=== PATIENT | female | born 1990 | race Two or more races ===

== ENCOUNTER 2018-03-01 09:16 | Inpatient (IN) | payer OTHER ==
[2018-03-01] MEDS ORDERED: OXYTOCIN 30 UNITS/LR 500 ML IV ×2 (14:30)
[2018-03-01] MEDS ORDERED: CARBOPROST 250 MCG INJ IM (14:30)
[2018-03-01] MEDS ORDERED: LIDOCAINE 1% (MPF) 30 ML INJ INJ (14:30)
[2018-03-01] MEDS ORDERED: MISOPROSTOL 200 MCG TAB PR (14:30)
[2018-03-01] MEDS ORDERED: METHYLERGONOVINE 0.2 MG INJ IM (14:30)
[2018-03-01] MEDS: LACTATED RINGER'S 1,000 ML IV* ×2 (14:40→20:30)
[2018-03-01 14:47] LABS: ADD MAN DIFF? NO
[2018-03-01 15:05] LABS: BASOPHILS % 0.1 % (0.0-2.0); EOSINOPHILS % 0.2 % (0.0-7.0); HEMATOCRIT 36.9 % (37.0-47.0); HEMOGLOBIN 12.1 g/dl (12.0-16.0); LYMPHOCYTES # 1.5 10^3/ul (0.8-2.9); LYMPHOCYTES % 11.4 % (15.0-51.0); MEAN CORPUSCULAR HEMOGLOBIN 27.9 pg (29.0-33.0); MEAN CORPUSCULAR HGB CONC 32.8 g/dl (32.0-37.0); MEAN CORPUSCULAR VOLUME 85.2 fl (82.0-101.0); MEAN PLATELET VOLUME 10.7 fl (7.4-10.4); MONOCYTE # 0.6 10^3/ul (0.3-0.9); NEUTROPHIL # 10.6 10^3/ul (1.6-7.5); NEUTROPHILS % 82.6 % (39.0-77.0); PLATELET COUNT 210 10^3/UL (140-415); RED BLOOD COUNT 4.33 10^6/ul (4.20-5.40); RED CELL DISTRIBUTION WIDTH 13.6 % (11.5-14.5)
[2018-03-01 15:05] LABS: WHITE BLOOD COUNT 12.9 10^3/ul (4.8-10.8)
[2018-03-01 15:10] LABS: INR 0.88; PT RATIO 0.9
[2018-03-01 15:11] LABS: PARTIAL THROMBOPLASTIN TIME 26.3 Sec (23.0-35.0)
[2018-03-01 15:42] LABS: HEPATITIS B SURFACE ANTIGEN NEGATIVE (NEGATIVE)
[2018-03-01] MEDS: DINOPROSTONE 10 MG VAG SUPP VAG (17:01)
[2018-03-01] MEDS: ACYCLOVIR 400 MG TAB PO (20:30)
[2018-03-01] MEDS: BUTORPHANOL 2 MG INJ IV (22:59)
[2018-03-02] MEDS: LACTATED RINGER'S 1,000 ML IV* ×3 (02:01→20:48)
[2018-03-02] MEDS ORDERED: IBUPROFEN 600 MG TAB PO (05:00)
[2018-03-02] MEDS: LACTATED RINGER'S 1,000 ML IV (08:00)
[2018-03-02] MEDS ORDERED: MINERAL OIL LIGHT 10 ML VIAL TOP (08:00)
[2018-03-02] MEDS ORDERED: LIDOCAINE 0.5% (SDV) 50 ML INJ INJ (08:00)
[2018-03-02] MEDS: ACYCLOVIR 400 MG TAB PO (08:33)
[2018-03-02] MEDS ORDERED: FENTAnyl 2MCG/ML-ROPIV 0.2% 100 ML (09:09)
[2018-03-02] MEDS: OXYTOCIN 30 UNITS/LR 500 ML IV ×2 (10:04→15:48)
[2018-03-02 16:43] LABS: RAPID PLASMA REAGIN NONREACTIVE (NR)
[2018-03-02] MEDS ORDERED: LANOLIN 7 GM TUBE TOP (19:00)
[2018-03-02] MEDS ORDERED: MISOPROSTOL 200 MCG TAB PR (19:00)
[2018-03-02] MEDS ORDERED: ZOLPIDEM 5 MG TAB PO (19:00)
[2018-03-02] MEDS ORDERED: OXYCODONE/ASPIRIN (4.88/325) TAB PO ×2 (19:00)
[2018-03-02] MEDS ORDERED: METHYLERGONOVINE 0.2 MG INJ IM (19:00)
[2018-03-02] MEDS ORDERED: OXYTOCIN 30 UNITS/LR 500 ML IV (19:00)
[2018-03-02] MEDS ORDERED: CARBOPROST 250 MCG INJ IM (19:00)
[2018-03-02] MEDS: SENNA/DOCUSATE NA (8.6MG/50MG) TAB PO (20:48)
[2018-03-03] MEDS: IBUPROFEN 600 MG TAB PO ×5 (00:05→23:52)
[2018-03-03] MEDS: LACTATED RINGER'S 1,000 ML IV* ×3 (06:30→14:30)
[2018-03-03 06:50] LABS: ADD MAN DIFF? NO
[2018-03-03 06:52] LABS: WHITE BLOOD COUNT 12.8 10^3/ul (4.8-10.8)
[2018-03-03 06:52] LABS: BASOPHILS % 0.1 % (0.0-2.0); EOSINOPHILS % 0.2 % (0.0-7.0); HEMATOCRIT 29.3 % (37.0-47.0); HEMOGLOBIN 9.6 g/dl (12.0-16.0); LYMPHOCYTES # 1.9 10^3/ul (0.8-2.9); LYMPHOCYTES % 14.5 % (15.0-51.0); MEAN CORPUSCULAR HGB CONC 32.8 g/dl (32.0-37.0); MEAN CORPUSCULAR VOLUME 85.4 fl (82.0-101.0); MEAN PLATELET VOLUME 10.3 fl (7.4-10.4); MONOCYTE # 1.2 10^3/ul (0.3-0.9); NEUTROPHIL # 9.7 10^3/ul (1.6-7.5); NEUTROPHILS % 75.6 % (39.0-77.0); PLATELET COUNT 173 10^3/UL (140-415); RED BLOOD COUNT 3.43 10^6/ul (4.20-5.40); RED CELL DISTRIBUTION WIDTH 13.8 % (11.5-14.5)
[2018-03-03] MEDS: FERROUS SULFATE (EC) 325 MG TAB PO ×2 (10:28→21:01)
[2018-03-03] MEDS: SENNA/DOCUSATE NA (8.6MG/50MG) TAB PO ×2 (10:28→21:01)
[2018-03-04] MEDS: IBUPROFEN 600 MG TAB PO (05:33)
[2018-03-04] MEDS: WITCH HAZEL/GLYCERIN PAD PR (08:56)
[2018-03-04] MEDS: FERROUS SULFATE (EC) 325 MG TAB PO (08:56)
[2018-03-04] MEDS: SENNA/DOCUSATE NA (8.6MG/50MG) TAB PO (08:56)
[2018-03-04] MEDS: BENZOCAINE 20% 56 ML SPRAY TOP (08:56)
[2018-03-04] MEDS: DIPHTH/TET/ACEL PERTUSS (ADULT) 0.5 ML VIAL IM* (08:58)
== END 2018-03-04 11:00 | disposition home or self-care (01) | DRG 807 ==
LOC: OBT 09:16 → PP1 03-02 18:48 → L-D 09:16 → OBT 12:51 → L-D 12:51
PROVIDERS: Obstetrics & Gynecology
PROC: 10E0XZZ Delivery of Products of Conception, External Approach (ICD-10-PCS; principal; 2018-03-02)
PROC: 0HQ9XZZ Repair Perineum Skin, External Approach (ICD-10-PCS; 2018-03-02)
PROC: 3E033VJ Introduction of Other Hormone into Peripheral Vein, Percutaneous Approach (ICD-10-PCS; 2018-03-02)
DX: O98.52 Other viral diseases complicating childbirth (principal); O69.81X0 Labor and delivery complicated by cord around neck, without compression, not applicable or unspecified; O70.0 First degree perineal laceration during delivery; Z3A.38 38 weeks gestation of pregnancy; Z37.0 Single live birth
CPT/HCPCS: 62319; 76818; 85025; 85610; 85730; 86592; 86850; 86900; 86901; 87340; 90686; 90715